=== PATIENT | male | born 1980 | race Caucasian/White ===

== ENCOUNTER 2024-06-29 15:28 | Outpatient (CLI) | payer OTHER, SELFPAY ==
[2024-06-29 15:42] LABS: Basophils Percent Auto 0.6 % (0.2-1.2); Eosinophils Absolute Auto 0.1 K/mm3 (0-0.3); Hematocrit 44.4 % (42.0-52.0); Immature Granulocyte Absolute 0.01 K/mm3 (0.00-0.031); Immature Granulocyte Percent A 0.2 % (0-0.5); Lymphocytes Absolute Auto 1.86 K/mm3 (0.9-3.2); Lymphocytes Percent Auto 36.5 % (18.3-44.2); Mean Corpuscular HGB Conc 33.8 g/dl (32-36); Mean Corpuscular Hemoglobin 31.6 pg (26-34); Mean Corpuscular Volume 93.7 fl (80-100); Mean Platelet Volume 10.6 fl (7.4-10.4); Monocytes Absolute Auto 0.4 K/mm3 (0.1-0.6); Monocytes Percent Auto 7.1 % (2.6-8.5); Neutrophils Absolute Auto 2.7 K/mm3 (1.3-6.7); Neutrophils Percent Auto 53.6 % (45.5-73.1); Platelet Count Result 193 k/mm3 (150-375); Red Blood Count 4.74 M/mm3 (4.6-6.20); Red Cell Distribution Width 12.5 % (11.5-14.5); White Blood Count 5.1 K/mm3 (4.5-10.0)
[2024-06-29 16:31] LABS: Iron 161 ug/dL (49-181)
[2024-06-29 16:34] LABS: Alanine Aminotransferase 28 U/L (6-50); Albumin Level 4.6 g/dL (3.5-5.1); Alkaline Phosphatase 53 U/L (38-126); Anion Gap 9 mmol/L (4-12); Aspartate Amino Transferase 36 U/L (17-59); Bilirubin,Total 0.6 mg/dL (0.2-1.3); Blood Urea Nitrogen 30 mg/dL (9-20); Carbon Dioxide 27 mmol/L (22-30); Chloride 102 mmol/L (98-107); Estimated Glomerular Filt Rate 59; Glucose 88 mg/dL (65-110); Potassium 4.1 mmol/L (3.4-5.0); Sodium 138 mmol/L (137-145)
[2024-06-29 16:42] LABS: Percent Iron Saturation 70 % (20-50)
--- OUTSIDE RECORDS SUMMARY | 2024-06-29 17:32 | XMS_ITS | Encounter Summary ---
Author Organization [facility] Address [address] [place] [address] Care Team Providers Care Attendance Clerk Name Role Phone Unavailable Primary Care Provider Unavailabl e Reason for Visit * Reason Comments Establish Care Encounter Details Date Type Department Care Team (Late st Contact Info) Description 06/29/2024 3:00 PM CDT Office Visit [facility] Oncology and Hematology - Tony [address] [facility] [address] [place] [address] Darian Levin MD [address] [facility] [address] [place] [address] Hereditary hemochromatosis (Primary Dx) Social History Tobacco Use Types Packs/Day Years Used Date Smoking Tobacco: Never Smokeless Tobacco: Never Alcohol Use Standard Drinks/Week Comments Yes 0 (1 standard drink = 0.6 oz pur e alcohol) Occasionally Sex and Gender Information Value Date Recorded Sex Assigned at Not on file Legal Sex Male 6:24 PM CDT Gender Identity Not on file Sexual Orientation Not on file documented as of this encounter Last Filed Vital Signs Vital Sign Reading Time Taken Comments Blood Pressure 123/83 06/29/2024 2:56 PM CDT Pulse 62 06/29/2024 2:56 PM CDT Temperature 36.3 C (97.3 F) 06/29/2024 2:56 PM CDT Respiratory Rate 17 06/29/2024 2:56 PM CDT Oxygen Saturation 96% 06/29/2024 2:56 PM CDT Inhaled Oxygen Concentration - - Weight 85.3 kg (188 lb) 06/29/2024 2:56 PM CDT Height 177.8 cm (5' 10 ) 06/29/2024 2:56 PM CDT Body Mass Index 26.98 06/29/2024 2:56 PM CDT documented in this encounter Progress Notes * Darian Levin MD - 06/29/2024 3:08 PM CDT Hematology-oncology consult Note Requesting Physician Primary Care Physician No primary care provider on file. Problem list There is no problem list on file for this patient. Previous TREATMENT ? Measurable Disease ? Reason for Visit Colin Copeland is a 44 y.o. male who was referred for consultation for Hereditary hemochromatosis. History of present illness This is a pleasant 44-year-old male who has been very active and runs marathon on a regular basis had routine blood testing done by the primary care physician on March 01, 2024 showed serum iron of 234, iron saturation 96% and ferritin of 252. Hemochromatosis testing was also performedthat came back positive for C282Y homozygous state. Patient's sister was diagnosed with hemochromatosis as well. He denies any chest pain and abdominal pain. No bleeding and bruising. He drinks alcohol occasionally once a month basis. Denies any other new complaints. Past Medical History No past medical history on file. Surgical History Past Surgical History: Procedure Laterality Date HX GROWTH PLATE SURGERY Both knees ' HX REPAIR TENDONS LEG Right 2010 HX VARICOCELE EXCISION 2022 Medications Current Outpatient Medications Medication Sig Dispense Refill terbinafine HCL (LamISIL) 250 mg tablet Take 1 Tablet (250 mg) by mouth daily for onychomycosis. 90Tablet 0 No current facility-administered medications for this visit. Allergies No Known Allergies Immunizations: Immunization History Administered Date(s) Administered (SPIKEVAX) (12 YRS UP PRIMARY SERIES) COVID-19 VACCINE - MRNA-1273(PF) 100 MCG/0.5 ML IM SUSP 08/10/2020, 09/07/2020 Family History Family History Problem Relation Name Age of Onset No Known Problems Father No Known Problems Mother No Known Problems Brother No Known Problems Sister Social History Social History Tobacco Use Smoking status: Never Smokeless tobacco: Never Substance Use Topics Alcohol use: Yes Comment: Occasionally Review of Systems Constitutional: Patient did not mention fever; no night sweats; no anorexia; no weight loss; no fatique NEENT: Patient did not mention headache; no change in vision; no change in hearing; no sore throat;no dysphagia Respiratory: Patient did not mention shortness of breath; no pleuritic chest pain; no cough; no hemoptysis Cardiac: Patient did not mention cardiac-like chest pain; no palpitations; no orthopnea; no PND; noDOE GI: Patient did not mention abdominal pain; no nausea; no vomiting; no diarrhea; no hematochezia; no melena : Patient did not mention dysuria; no frequency; no hesitancy; no hematuria INDUSTRIAL MAINTENANCE TECH: Musculosketetal: Patient did not mention bone pain; no arthralgia; no joint swelling; no myalgia; Skin: Patient did not mention pruritis; no rash; no petechiae; no ecchymoses Endocrine: Patient did not mention polydipsia; no polyuria; no unusual weight gain Neuro: Patient did not mention headache; no change in vision; no sensory changes; no muscle weakness; no confusion; no seizures Psych: Patient did not mention anxiety; no depression; Physical Exam Vitals: As per nursing note Constitutional: Well developed, well nourished, no acute distress, non-toxic appearance Teeth and gum. No signs of infection or swelling. Eyes: PERRL, conjunctiva normal HEENT: Atraumatic, external ears normal, nose normal, oropharynx moist, no pharyngeal exudates. no sinus tenderness Neck- normal range of motion, no tenderness, supple Respiratory: No respiratory distress, normal breath sounds, no rales, no wheezing Cardiovascular: Normal rate, normal rhythm, no murmurs, no gallops, no rubs GI: Soft, nondistended, normal bowel sounds, nontender, no splenomegaly, no hepatomegaly, no mass, no rebound, no guarding : No costovertebral angle tenderness Musculoskeletal: No edema, no tenderness, no deformities. Back- no tenderness Integument: Well hydrated, no rash, Digits and nails inspection normal Lymphatic: No lymphadenopathy noted Neurologic: Alert & oriented x 3, CN 2-12 normal, normal motor function, normal sensory function, no focal deficits noted Psychiatric: Speech and behavior appropriate ? labs No results found for this or any previous visit (from the past 24 hours). Labs from March 09, 2024 showed iron 234 saturation 96 ferritin 252 AST 23 ALT 17 total bilirubin 1.0 WBC 3.5 hemoglobin 15.9 platelet count 189,000 Pathology ? Imaging & Other Studies Performance Status? Assessment / Plan: ? Hereditary hemochromatosis with C282Y homozygous state diagnosis March 2024. Patient is a pleasant 44-year-old quite active marathon runner who had routine labs done by the primary care physician that showed elevated serum iron. He drinks alcohol occasionally maybe once a month. He denies any abdominal pain and chest pain. Denies any bleeding and bruising. Patient sister was also diagnosed with hemochromatosis. I have reviewed the diagnosis and complication of hemochromatosis in detail. I have recommended to avoid iron containing food specially the red meat. He is not taking any iron supplements. He will also avoid vitamin C. I will repeat iron studies today and perform phlebotomy on a mo nthly basis to keep iron saturation less than 50 and ferritin less than 200. I have answered all the questions to patient satisfaction. Follow-up phone visit with me in 1 week. Thank you very much for allowing me to participate in Colin Copeland's evaluation and management. Please feel free to contact if I can be of any further assistance in your patient???s care requiring hematology or oncology evaluation. Sincerely, ? ? Darian Levin M.D. cell TOBACCO COUNSELING He is not a tobacco/nicotine user. Darian Levin MD ,06/29/2024 3:38 PM ? Total time spent 60 minutes, two third of the total time spent counseling patient [id number]. CC:? documented in this encounter Plan of Treatment Upcoming Encounters Date Type Department Care Team (Late st Contact Info) Description 07/07/2024 4:00 PM CDT Telephone Check Up [facility] On[facility] Hematology - Tony [address] [place] [address] Darian Levin MD [address] [facility] [address] [place] [address] 09/30/2024 2:45 PM CDT Office Visit [facility] On[facility] H[facility] [address] [place] [address] Darian Levin MD [address] [facility] [address] [place] [phone] Scheduled Orders Name Type Priority Associated Diagnoses Orde r Schedule CBC WITH DIFFERENTIAL Lab Stat Hereditary hemochromatosis Expected: 06/29/2024, Expires: 06/29/2025 COMPREHENSIVE METABOLIC PANEL Lab Stat Hereditary hemochromatosis Expected: 06/29/2024, Expires: 06/29/2025 FERRITIN Lab Routine Hereditary hemochromatosis Expected: 06/29/2024, Expires: 06/29/2025 IRON, TIBC, AND PERCENT SATURATION Lab Routine Hereditary hemochromatosis Expected: 06/29/2024, Expires: 06/29/2025 CBC WITHOUT DIFFERENTIAL Lab Stat Hereditary hemochromatosis Expected: 09/21/2024, Expires: 06/29/2025 FERRITIN Lab Routine Hereditary hemochromatosis Expected: 09/21/2024, Expires: 06/29/2025 IRON, TIBC, AND PERCENT SATURATION Lab Routine Hereditary hemochromatosis Expected: 09/21/2024, Expires: 06/29/2025 documented as of this encounter Visit Diagnoses Diagnosis Hereditary hemochromatosis- Primary documented in this encounter
--- OUTSIDE RECORDS SUMMARY | 2024-06-29 17:32 | XMS_ITS | Clinical Summary ---
Author Organization [facility] Vaishnavi chaudhry [facility] Address [address] [facility] [place] [address] Care Team Providers Care Quality Control Head Name Role Phone Unavailable Primary Care Provider Unavailabl e Allergies No known active allergies Medications terbinafine HCL (LamISIL) 250 mg tablet Take 1 Tablet (250 mg) by mouth daily for onychomycos is. 90 Tablet 03/05/2024 3:42 PM DRUG AND ALCOHOL COUNSELLOR 03/01/2024 Active Active Problems No known active problems Encounters Date Type Department Care Team Description 06/29/2024 3:00 PM CDT Office Visit [facility] Oncology and Hematology - Tony [address] [facility] [address] [place] [address] Darian Levin MD Hereditary hemochromatosis (Primary Dx) 06/15/2024 External Device Data STL ABSTRACTION Provider, Abstract 06/01/2024 External Device Data STL ABSTRACTION Provider, Abstract 05/19/2024 External Device Data STL ABSTRACTION Provider, Abstract 05/13/2024 External Device Data STL ABSTRACTION Provider, Abstract from Last 3 Months Family History Medical History Relation Name Comments No Known Problems Brother No Known Problems Father No Known Problems Mother No Known Problems Sister Relation Name Status Comments Brother Alive Father Alive Mother Alive Sister Alive Social History Tobacco Use Types Packs/Day Years Used Date Smoking Tobacco: Never Smokeless Tobacco: Never Alcohol Use Standard Drinks/Week Comments Yes 0 (1 standard drink = 0.6 oz pur e alcohol) Occasionally Sex and Gender Information Value Date Recorded Sex Assigned at Not on file Legal Sex Male 6:24 PM CDT Gender Identity Not on file Sexual Orientation Not on file Last Filed Vital Signs Vital Sign Reading [...] Mass Index 26.98 06/29/2024 2:56 PM CDT Plan of Treatment Upcoming Encounters Date Type Department Care Team (Late st Contact Info) Description 07/07/2024 4:00 PM CDT Telephone Check Up [facility] Oncology and Hematology [facility] [address] [place] [phone] Darian Levin MD [address] [facility] [address] [place] [phone] 09/30/2024 2:45 PM CDT Office Visit [facility] Oncology and Hematology [facility] [address] [place] [address] Darian Levin MD [address] [facility] [address] [place] [phone] Health Maintenance Due Date Last Done Comments HEPATITIS B VACCINES (1 of 3 - 19+ 3-dose series) 2000 INFLUENZA VACCINE (#1) 2023 2, 05/31/2019 COVID-19 Vaccine (2023- season) 2023 09/07/2020, 08/10/2020 DTAP/TDAP/TD VACCINES (2 - Td or Tdap) 03/05/2032 03/05/2022, 01/26/2018 HPV VACCINES Aged Out No longer eligi ble based on patient's age to complete this topic Insurance RX [facility] [employer]
--- OUTSIDE RECORDS SUMMARY | 2024-06-29 17:32 | XMS_ITS | Clinical Summary ---
Author Organization [facility] Address [address] [place] [phone] Care Team Providers Care Chargemaster Specialist Name Role Phone Unavailable Primary Care Provider Unavailabl e Allergies Active Allergy Reactions Criticality Noted Date Comments Adhesive Tape-Silicones Itching,Rash Medium Benzoin Itching,Rash Medium Medications cholecalcifero l (VITAMIN D-3) 1,000 unit Take 1 tablet/capsule (1,000 Units total) by mouth early childhood worker before breakfast Active dextroamphetam ine-amphetamin e XR (ADDERALL XR) 30 mg 24 hr capsule Take 1 capsule (30 mg total) by mouth every morning 30 capsule 3 Active Additional Information Patient taking differently:30 mg oralAs needed, Indications: Attention-Deficit Hyperactivity Disorder, Informant: Self, Reported on 03/19/2023 magnesium gluconate 30 mg (550 mg) tablet Take 1 tablet (550 mg total) by mouth nightly Active ZINC ORAL Take 1 tablet by mouth early childhood worker before breakfast Active ASHWAGANDHA EXTRACT ORAL Take 1 tablet by mouth early childhood worker before breakfast Active CREATINE, BULK, MISC Take 1 Dose by mouth early childhood worker before breakfast Active multivitamin tablet Take 1 tablet by mouth early childhood worker before breakfast Active oxyCODONE (ROXICODONE) 5 mg immediate release tabletIndicati ons:Pain Take 1 tablet (5 mg total) by mouth every 4 (four) hours as needed for pain 10 tablet 3 Active Active Problems Problem Noted Date Diagnosed Date Varicocele 01/28/2023 Abnormal transaminases 09/23/2022 Assessment & Plan (09/23/2022 4:51 PM CDT): Repeat hepatic function panel in 30 days and call back for results. Further workup if remains elevated. Fatigue 09/19/2020 Assessment & Plan (09/19/2020 9:59 AM CDT): CBC TSH normal. Vitamin-D low. Restart vitamin-D supplementation. Check again before next visit. Check testosterone level and call back for results. Anxiety disorder 05/31/2019 Assessment & Plan (09/20/2021 4:39 PM CDT): No complaints today. Assessment & Plan (09/19/2020 9:58 AM CDT): Well controlled with infrequent lorazepam. Assessment & Plan (09/13/2019 9:41 AM CDT): Well controlled currently with very infrequent usage of lorazepam. Continue exercising habits. Call back if symptoms worsen for consideration of SSRI therapy in the future. Assessment & Plan (05/31/2019 7:04 PM COMMUNICATION SPECIALIST): Trial of lorazepam as needed. He is aware of sedating and addicting side effects. To be used as needed and sparingly. Continue exercise. If symptoms worsen, would recommend restarting counseling and consideration of SSRI therapy will see him back in 2 months for repeat evaluation. Onychomycosis 01/26/2018 Assessment & Plan (09/23/2022 4:52 PM CDT): Wait until hepatic function panel repeated in 30 days to ensure liver enzymes back to normal. If returned to normal, then okay for terbinafine 250 mg daily for 3 months with hepatic function panels in 30 and 60 days. Assessment & Plan (09/20/2021 4:38 PM CDT): Terbinafine 250 mg p.o. q.day for 3 months. Check hepatic function panel in 30 and 60 days and call back for results. Assessment & Plan (01/26/2018 6:35 PM CDT): Terbinafine and warned of side effects and will call back if any develop. Hepatic function panel in 30 and 60 days and call back for results. Healthcare maintenance 01/26/2018 Assessment & Plan (09/23/2022 4:51 PM CDT): Flu shot each January. Tetanus booster every 10 years. Diet exercise discussed. Will see him back in 1 year for physical fasting lab sooner if needed. Assessment & Plan (09/20/2021 4:39 PM CDT): Flu shot each January. Tetanus booster every 10 years. COVID booster later this summer. Diet exercise discussed. Will see him back in 1 year for physical fasting lab sooner if needed. Assessment & Plan (09/19/2020 9:58 AM CDT): Flu shot each January. Tetanus booster every 10 years. COVID vaccine completed. Will see him back in 1 year for physical fasting lab sooner if needed. Assessment & Plan (05/31/2019 7:04 PM COMMUNICATION SPECIALIST): Flu shot each January. Tetanus booster every 10 years. Diet exercise discussed. Will see him back in 2 months without lab sooner if needed. Assessment & Plan (01/26/2018 6:34 PM CDT): Flu shot each January. Tetanus booster updated today. Diet exercise discussed. We will see him back in 1 year for physical and fasting lab sooner if needed. Vitamin D deficiency 10/15/2017 Assessment & Plan (09/23/2022 4:52 PM CDT): Continue current supplementation and check level in 1 year. Assessment & Plan (09/20/2021 4:38 PM CDT): Continue current supplementation and check level in 1 year. Assessment & Plan (09/19/2020 9:58 AM CDT): Continue current supplementation and check level in 1 year. Assessment & Plan (05/31/2019 7:02 PM COMMUNICATION SPECIALIST): Restart vitamin-D 1000 units daily and check level down the road Assessment & Plan (01/26/2018 6:27 PM CDT): Vitamin-D level not drawn with labs for today's visit. Continue holding vitamin- D supplementation till repeat level drawn in 30 days and he will call back for results. Assessment & Plan (10/15/2017 12:59 PM CDT): Reduce vitamin-D intake to 2000 units daily and check level before next visit. ADD (attention deficit disorder) 09/25/2017 Assessment & Plan (09/23/2022 4:51 PM CDT): Adderall XR 30 mg daily as needed. Assessment & Plan (05/31/2019 7:03 PM COMMUNICATION SPECIALIST): Stable off medication. Assessment & Plan (01/26/2018 6:26 PM CDT): Well controlled on Concerta. Assessment & Plan (10/15/2017 12:59 PM CDT): Better controlled on his Concerta 18 mg daily. Skin lesion 08/19/2016 Major depressive disorder 07/31/2016 Overview (09/13/2016): MDD Resolved Problems Problem Noted Date Diagnosed Date Resolved Date Attention or concentration deficit 09/20/2021 06/17/2022 Assessment & Plan (09/20/2021 4:40 PM CDT): Referral to psychologist for confirmation of diagnosis. Potential treatments discussed. Acute bronchitis with bronchospasm 02/27/2017 10/15/2017 Assessment & Plan (02/27/2017 2:24 PM COMMUNICATION SPECIALIST): Humidification, fluids, and rest were recommended. Patient was instructed to take antibiotic as directed. Patient was encouraged to take antibiotic with food. I have also recommended daily probiotic, yogurt or capsule, while on the antibiotic. Albuterol inhaler for as needed use for bronchospasm. Immunizations Immunization Administration Dates Next Due Influenza, Quadrivalent, Spl it, Preservative Free, Intramuscular 04/05/2022,05/31/2019 Influenza, Unspecified 09/20/2021(Deferr ed: Patient Refused),05/31/2019(Deferred: Patient Refused),01/19/2018(Deferred: Patient Refused) Moderna SARS-CoV-2 Monovalen t Vaccination (12+ YRS) 09/07/2020,08/10/2020 Td, adsorbed 01/26/2018 Tdap 03/05/2022 Surgical History Surgery Date Site/Laterality Comments KNEE ARTHROSCOPY 04/21/2010 - 04/20/2011 Right Arthroscopy knee OTHER SURGICAL HISTORY 04/21/1994 - 04/20/1995 Bilateral growth plates closed Medical History Medical History Date Comments Hx Other Medical 1994 R leg fx Hx Other Medical closed growth p lates above builateral knees Hx Other Medical R ACL replaceme nt PONV (postoperative nausea a nd vomiting) Family History Medical History Relation Name Comments Heart disease Other Hypertension Other Anesthesia problems Neg Hx Relation Name Status Comments Other Social History Tobacco Use Types Packs/Day Years Used Date Smoking Tobacco: Former Cigarettes 0.3 12 1 - 01/26/2010 Smokeless Tobacco: Former Chew Tobacco Cessation:Counseling Given: Not Answered Comments:Occasional cigar and chew Alcohol Use Standard Drinks/Week Comments Yes 0 (1 standard drink = 0.6 oz pur e alcohol) AUDIT-C Answer Date Recorded Q1: How often do you have a drink containing alc ohol? 2-3 times a week 04/10/2023 Q2: How many drinks containi ng alcohol do you have on a typical day when you are drinking? 1 or 2 04/10/2023 Q3: How often do you have si x or more drinks on one occasion? Never 04/10/2023 PHQ-2 Answer Date Recorded PHQ-2 Total Score (If total score is 3 or more points, staff should administer the PHQ-9) 0 09/23/2022 Personal Safety Answer Date Recorded Have you ever been in or are you currently in a harmful physical or emotional relationship or is someone making you feel afraid or unsafe? Denies 04/10/2023 Sex and Gender Information Value Date Recorded Sex Assigned at Not on file Legal Sex Male 6:38 PM COMMUNICATION SPECIALIST Gender Identity Not on file Sexual Orientation Straight 05/28/2022 6: 38 PM COMMUNICATION SPECIALIST Obstetrics History Last Filed Vital Signs Vital Sign Reading Time Taken Comments Blood Pressure 122/71 04/10/2023 1:15 PM COMMUNICATION SPECIALIST Pulse 59 04/10/2023 1:15 PM COMMUNICATION SPECIALIST Temperature 35.7 C (96.3 F) 04/10/2023 1:15 PM COMMUNICATION SPECIALIST Respiratory Rate 10 04/10/2023 1:15 PM COMMUNICATION SPECIALIST Oxygen Saturation 98% 04/10/2023 1:15 PM COMMUNICATION SPECIALIST Inhaled Oxygen Concentration - - Weight 88.5 kg (195 lb) 03/19/2023 4:40 PM COMMUNICATION SPECIALIST Height 177.8 cm (5' 10 ) 03/19/2023 4:40 PM COMMUNICATION SPECIALIST Body Mass Index 27.98 03/19/2023 4:40 PM COMMUNICATION SPECIALIST Plan of Treatment Health Maintenance Due Date Last Done Comments Hepatitis C Screening 1981 Varicella Vaccines (1 of 2 - 13+ 2-dose series) 1994 Hepatitis B Screening 1999 Depression Screening 09/24/2023 09/23/2022, 06/17/2022, 05/31/2022, Additional history exists Regular Well Visit/Exam 18-64 09/24/2023 09/23/2022, 09/20/2021, 09/19/2020, Additional history exists Covid-19 Vaccine ( season) 2023 09/07/2020, 08/10/2020 Influenza Vaccine (#1) 2023 04/05/2022, 2019 DTaP/Tdap/Td Vaccine (2 - Td or Tdap) 03/05/2032 03/05/2022, 01/26/2018 HPV Vaccines Aged Out No longer eligi ble based on patient's age to complete this topic Pneumococcal vaccine <65 Aged Out No longer eligible based on patient's age to complete this topic Insurance [employer] [employer] [employer] Address: [address] [place] [address] [employer] [facility] Member Subscriber Plan / Payer (Ef fective 2022-Present) Name:Colin Leal Relation to Subscriber:Spouse Name:BONITA LEAL Date of :1899 (Home) Address: [address] [place] [address] Payer ID:[id number] (NAIC) Group ID:[id number] Type:DivvyHQ Address: [phone] [employer] [place] [facility] FEDERAL
--- OUTSIDE RECORDS SUMMARY | 2024-06-29 17:32 | XMS_ITS | Referral Summary ---
Author Organization [facility] Address [address] [place] [id number] Care Team Providers Care Motorboat Operator Name Role Phone Unavailable Primary Care Provider Unavailabl e Allergies Active Allergy Reactions Criticality Noted Date Comments Adhesive Tape-Silicones Itching,Rash Medium Benzoin Itching,Rash Medium Medications cholecalcifero l (VITAMIN D-3) 1,000 unit Take 1 tablet/capsule (1,000 Units total) by mouth homeworker before breakfast Active dextroamphetam ine-amphetamin e XR [...] ZINC ORAL Take 1 tablet by mouth homeworker before breakfast Active ASHWAGANDHA EXTRACT ORAL Take 1 tablet by mouth homeworker before breakfast Active CREATINE, BULK, MISC Take 1 Dose by mouth homeworker before breakfast Active multivitamin tablet Take 1 tablet by mouth homeworker before breakfast Active oxyCODONE (ROXICODONE) 5 mg [...] future. Assessment & Plan (05/31/2019 7:04 PM HOOP PUNCH AND COILER OPERATOR): Trial of lorazepam as needed. He is [...] needed. Assessment & Plan (05/31/2019 7:04 PM HOOP PUNCH AND COILER OPERATOR): Flu shot each January. Tetanus booster every [...] year. Assessment & Plan (05/31/2019 7:02 PM HOOP PUNCH AND COILER OPERATOR): Restart vitamin-D 1000 units daily and check [...] needed. Assessment & Plan (05/31/2019 7:03 PM HOOP PUNCH AND COILER OPERATOR): Stable off medication. Assessment & Plan (01/26/2018 [...] 10/15/2017 Assessment & Plan (02/27/2017 2:24 PM HOOP PUNCH AND COILER OPERATOR): Humidification, fluids, and rest were recommended. Patient [...] YRS) 09/07/2020,08/10/2020 Td, adsorbed 01/26/2018 Tdap 03/05/2022 Social History Tobacco Use Types Packs/Day Years [...] on file Legal Sex Male 6:38 PM HOOP PUNCH AND COILER OPERATOR Gender Identity Not on file Sexual Orientation Straight 05/28/2022 6: 38 PM HOOP PUNCH AND COILER OPERATOR Last Filed Vital Signs Vital Sign Reading Time Taken Comments Blood Pressure 122/71 04/10/2023 1:15 PM HOOP PUNCH AND COILER OPERATOR Pulse 59 04/10/2023 1:15 PM HOOP PUNCH AND COILER OPERATOR Temperature 35.7 C (96.3 F) 04/10/2023 1:15 PM HOOP PUNCH AND COILER OPERATOR Respiratory Rate 10 04/10/2023 1:15 PM HOOP PUNCH AND COILER OPERATOR Oxygen Saturation 98% 04/10/2023 1:15 PM HOOP PUNCH AND COILER OPERATOR Inhaled Oxygen Concentration - - Weight 88.5 kg (195 lb) 03/19/2023 4:40 PM HOOP PUNCH AND COILER OPERATOR Height 177.8 cm (5' 10 ) 03/19/2023 4:40 PM HOOP PUNCH AND COILER OPERATOR Body Mass Index 27.98 03/19/2023 4:40 PM HOOP PUNCH AND COILER OPERATOR Plan of Treatment Not on file Insurance [employer] Address: [facility] [id number] [place] [address] [address] [place] [address] [address] [employer] [employer] [place] [facility]
--- OUTSIDE RECORDS SUMMARY | 2024-06-29 17:32 | XMS_ITS | Clinical Summary ---
Author Organization [facility] Address [address] [place] [address] Care Team Providers Care Family Practice Md Name Role Phone Elio Avery MD Primary Care Provider [phone] Allergies Active Allergy Reactions Criticality Noted Date Comments Benzoin Itching 03/05/2022 Tape Unknown 03/05/2022 Medications vitamin D3, cholecalciferol, 25 MCG (1000 UT) capsule Take 1,000 Units by mouth daily. Active amphetamine-dextro amphetamine XR (ADDERALL XR) 30 MG 24 hr capsuleIndications :Attention deficit hyperactivity disorder (ADHD), predominantly inattentive type Take 1 capsule (30 mg total) by mouth every morning. 30 capsule 2 Active Active Problems Problem Noted Date Diagnosed Date Vitamin D deficiency 10/15/2017 Overview (03/05/2022): Last Assessment & Plan: Continue current supplementation and check level in 1 year. ADD (attention deficit disorder) 09/25/2017 Overview (03/05/2022): Last Assessment & Plan: Stable off medication. Immunizations Name Administration Dates Next Due Fluzone 6 Months+ Quad (0.5 mL Prefilled Syringe ) 04/05/2022 Influenza Adult (Generic) 05/31/2019 Td (TDVAX) 01/26/2018 Tdap (Adacel) 03/05/2022 Family History Medical History Relation Comments Alcohol Abuse Mother Relation Status Comments Mother Social History Tobacco Use Types Packs/Day Years Used Date Smoking Tobacco: Some Days Cigars Smokeless Tobacco: Never Tobacco Cessation:Ready to Q uit: No; Counseling Given: Yes Comments:Have an occasional cigar, cigarette free since 04/21/2011, chewing tobacco free since 2017 Alcohol Use Standard Drinks/Week Comments Yes 1 (1 standard drink = 0.6 oz pur e alcohol) PHQ-2 Answer Date Recorded PHQ-2 Score - If the patient scores above 3, please move on to questions 3-9 0 03/05/2022 Sex and Gender Information Value Date Recorded Sex Assigned at Not on file Legal Sex Male 12:37 PM CDT Gender Identity Not on file Sexual Orientation Not on file Last Filed Vital Signs Vital Sign Reading Time Taken Comments Blood Pressure 133/87 04/05/2022 8:35 AM CELL ATTENDANT Pulse 71 04/05/2022 8:35 AM CELL ATTENDANT Temperature 37.4 C (99.3 F) 04/05/2022 8:35 AM CELL ATTENDANT Respiratory Rate 18 04/05/2022 8:35 AM CELL ATTENDANT Oxygen Saturation 99% 04/05/2022 8:35 AM CELL ATTENDANT Inhaled Oxygen Concentration - - Weight 96.7 kg (213 lb 3.2 oz) 04/05/2022 8:35 A M CELL ATTENDANT Height 177.8 cm (5' 10 ) 04/05/2022 8:35 AM CELL ATTENDANT Body Mass Index 30.59 04/05/2022 8:35 AM CELL ATTENDANT Plan of Treatment Health Maintenance Due Date Last Done Comments Pneumococcal Vaccine: Pediatrics (0 to 5 Years) and At-Risk Patients (6 to 64 Years) (1 of 2 - PCV) 1987 PHQ-2 (Physician [place]) 1993 Hepatitis B Vaccines (1 of 3 - 19+ 3-dose series) 2000 Annual Physical 03/05/2023 03/05/2022 COVID-19 Vaccine (3 - 2023-2 5 season) 2023 09/07/2020, 08/10/2020 Influenza Adult (#1) 2024 04/05/2022, 05/31/2019 PHQ-2 (Physician [place]) 04/21/2024 DTaP, Tdap and Td Vaccines ( 2 - Td or Tdap) 03/05/2032 03/05/2022, 01/26/2018 Hepatitis C Completed 03/05/2022 HPV Vaccines Aged Out No longer eligi ble based on patient's age to complete this topic Meningococcal B Vaccine Aged Out No l onger eligible based on patient's age to complete this topic Meningococcal Vaccine Aged Out No aleks tab eligible based on patient's age to complete this topic RSV Immunizations Under 20 Months Aged Out No longer eligible b ased on patient's age to complete this topic Procedures Procedure Name Priority Date/Time Associated Diagnosis Comments HEPATITIS C ANTIBODY Routine 03/05/2022 10:19 AM CELL ATTENDANT Annual physical exam Encounter for medical examination to establish care General medical exam Encounter for hepatitis C screening test for low risk patient from Last 3 Months or Most Recently Relevant to Health Maintenance Results * HEPATITIS C ANTIBODY (03/05/2022 10:19 AM CELL ATTENDANT) HEPATITIS C AB NON-REACTI VE NON-REACT NORMA 03/05/2022 8:12 PM CELL ATTENDANT [facility] Comment: ANTIBODIES TO HCV NOT DETECTED. DOES NOT EXCLUDE THE POSSIBILITY OF EXPOSURE TO HCV. 03/05/2022 10:1 9 AM CELL ATTENDANT Elio Avery MD LABORATORY Final Result [facility] [address] [place] [address], [id number] from Last 3 Months or Most Recently Relevant to Health Maintenance [place] [address] [place] [address] Care Teams Family Practice Md Relationship Specialty Start Date End Date Elio Avery MD [address] [phone] PCP - General INTERNAL MEDICINE 03/05/22
--- OUTSIDE RECORDS SUMMARY | 2024-06-29 17:32 | XMS_ITS | Clinical Summary ---
Author Organization [facility] Address [address] [place] [address] Phone Care Team Providers Care Real Estate Internship Name Role Phone Viktor Jackson MD Primary Care Provider [phone] Allergies No known active allergies Medications terbinafine (LamISIL) 250 MG TabletIndicatio ns:toenail fungus Take 250 mg by mouth daily. Indications: toenail fungus Active Active Problems Problem Noted Date Diagnosed Date SUKHDEEP (generalized anxiety disorder) 11/16/2021 ADHD (attention deficit hype ractivity disorder), combined type 11/16/2021 Immunizations Immunization Administration Dates Next Due Covid-19, Mrna, Lnp-s, PF, 1 00 mcg/0.5 mL Dose (Moderna) 09/07/2020,08/10/2020 Family History Medical History Relation Name Comments No Known Problems Brother No Known Problems Father Alcohol Abuse Mother Dementia Mother No Known Problems Sister Relation Name Status Comments Brother Alive Father Alive Mother Alive Sister Alive Social History Tobacco Use Types Packs/Day Years Used Date Smoking Tobacco: Former Cigarettes Q uit: 04/20/2011 Smokeless Tobacco: Former Quit: 11/06/2019 Comments:currently smokes tw o or three cigars a month Alcohol Use Standard Drinks/Week Comments Yes 2 (1 standard drink = 0.6 oz pure alcohol) one or two beers or a glass of burbon a week Sexually Active Control Partners Comments Yes Female Sex and Gender Information Value Date Recorded Sex Assigned at Not on file Legal Sex Male 9:53 PM CDT Gender Identity Not on file Sexual Orientation Not on file Last Filed Vital Signs Vital Sign Reading Time Taken Comments Blood Pressure 134/78 07/20/2020 1:07 PM CDT Pulse 87 07/20/2020 1:07 PM CDT Temperature 36.4 C (97.6 F) 07/20/2020 1:07 PM CDT Respiratory Rate 16 07/20/2020 1:07 PM CDT Oxygen Saturation 96% 07/20/2020 1:07 PM CDT Inhaled Oxygen Concentration - - Weight - - Height - - Body Mass Index - - Plan of Treatment Health Maintenance Due Date Last Done Comments Hepatitis C Virus (HCV) Screening 1981 TdaP Immunization 1981 Hepatitis B Immunization (1 of 3 - 19+ 3-dose series) 2000 Influenza Immunization (#1) 2023 05/31/2019 SARS-COV-2 Immunization ( - 2023- season) 2023 09/07/2020, 08/10/2020 Respiratory Syncytial Virus (RSV) Immunization (Adult) (1 - 1-dose 75+ series) 2056 DTaP/Tdap/Td Immunization Discontinued 01/26/2018 Meningococcal Immunization (ACWY) Aged Out No longer eligible based on patient's age to complete this topic Pneumococcal Immunization Combined Aged Out No longer eligible based on patient's age to complete this topic Rotavirus Immunization Aged Out No lo nger eligible based on patient's age to complete this topic Goals Goal Patient Goal Type Associated Problems Recent Progress Patient-Stated? Author Behavioral Health Behavioral Health On track(2021 4:29 PM CDT) No Devika Castro LCSW Note: Goal/Objective: Decrease anxiety and increase focus. Anticipated Time Frame for Goal Completion: 2 weeks Goal Reviewed with: patient Readiness to change: Ready to change Department associated with goal: [facility] Steps to achieve goal: will attend counseling/psychotherapy sessions at least once monthly at least 6 sessions , utilizing individual and/or group sessions to express thoughts and feelings to support anxiety and help with focus. to identify, verbalize and process at least three contributing factors/triggers to anxiety. T o identify at least two lifestyle changes/habits. to put into action, at least one lifestyle change/habit, for one month or longer, to reduce and or cope with anxiety and depression. need to focus at work Behavioral Health On track(2021 4:29 PM CDT) Yes Devika Castro LCSW Insurance Care Teams Real Estate Internship Relationship Specialty Start Date End Date Viktor Jackson MD PCP - General Internal Medicine 07/20/20
== END 2024-06-29 15:29 | disposition home or self-care (01) ==
LOC: ANHLAB 15:32
PROVIDERS: PCP Internal Medicine; Visit Provider Internal Medicine Hematology & Oncology
DX: E83.110 Hereditary hemochromatosis (principal)
CPT/HCPCS: 36415; 80053; 82728; 83540; 83550; 85025